=== PATIENT | male | born 2000 | race Hispanic/Latino ===

== ENCOUNTER 2022-06-29 16:03 | Emergency (ER) | payer OTHER ==
[~2022-06-29] VITALS: Ht 180.3 cm; Wt 94.6 kg
[2022-06-29] MEDS ORDERED: ACETAMINOPHEN TAB 650MG DOSE (2X325MG) PO ONE (17:50)
[2022-06-29] MEDS ORDERED: IBUPROFEN 800 MG TAB PO ONE (17:50)
[2022-06-29] MEDS ORDERED: IBUP80TA PO (18:37)
[2022-06-29 19:01] VITALS: BP 120/61
== END 2022-06-29 19:08 | disposition home or self-care (01) ==
LOC: M ED 16:03
DX: S06.0X0A Concussion without loss of consciousness, initial encounter (principal); S73.101A Unspecified sprain of right hip, initial encounter; S46.011A Strain of muscle(s) and tendon(s) of the rotator cuff of right shoulder, initial encounter; V49.50XA Passenger injured in collision with unspecified motor vehicles in traffic accident, initial encounter; Z79.1 Long term (current) use of non-steroidal anti-inflammatories (NSAID)